=== PATIENT | female | born 1970 | race Caucasian/White ===

== ENCOUNTER 2016-10-13 14:25 | Emergency (ER) | payer BC ==
[~2016-10-13] VITALS: Wt 74.0 kg
[~2016-10-13 14:25] MED LIST: BACTDS PO; CIPR500T4 PO; DOCU-144 PO; HYDR-3498 PO; NITR-58 PO
[2016-10-13] MEDS ORDERED: DIPHENHYDRAMINE 50 MG INJ IV STA (16:59)
[2016-10-13] MEDS ORDERED: METOCLOPRAMIDE 10 MG INJ IV STA (16:59)
[2016-10-13] MEDS ORDERED: KETOROLAC 30 MG INJ IV STA (16:59)
[2016-10-13] MEDS ORDERED: ONDANSETRON 4 MG INJ IV STA (16:59)
[2016-10-13] MEDS ORDERED: SOD CHLORIDE 0.9% 1,000 ML IV STA (16:59)
[2016-10-13 17:25] LABS: BASOPHILS % 0.3 % (0.0-2.0); EOSINOPHILS # 0.1 10^3/ul (0.0-0.5); HEMATOCRIT 35.8 % (37.0-47.0); HEMOGLOBIN 12.4 g/dl (12.0-16.0); LYMPHOCYTES # 1.8 10^3/ul (0.8-2.9); LYMPHOCYTES % 34.9 % (15.0-51.0); MEAN CORPUSCULAR HEMOGLOBIN 32.8 pg (29.0-33.0); MEAN CORPUSCULAR HGB CONC 34.6 g/dl (32.0-37.0); MEAN CORPUSCULAR VOLUME 94.7 fl (82.0-101.0); MEAN PLATELET VOLUME 7.7 fl (7.4-10.4); MONOCYTE # 0.5 10^3/ul (0.3-0.9); MONOCYTES % 9.3 % (0.0-11.0); NEUTROPHIL # 2.8 10^3/ul (1.6-7.5); NEUTROPHILS % 54.5 % (39.0-77.0); PLATELET COUNT 248 10^3/UL (140-440); RED BLOOD COUNT 3.78 10^6/ul (4.20-5.40); UNCORRECTED WBC 5.2 10^3/ul (4.8-10.8); WHITE BLOOD COUNT 5.2 10^3/ul (4.8-10.8)
[2016-10-13 17:26] LABS: CONDITION 1
[2016-10-13] MEDS ORDERED: NITROFURANTOIN (SR) 100 MG CAP PO ONE (17:30)
[2016-10-13 17:32] LABS: CHLORIDE 105 mmol/L (97-110); POTASSIUM 4.9 mmol/L (3.5-5.1); SODIUM 141 mmol/L (135-144)
[2016-10-13 17:35] LABS: ANION GAP 18 (8-16); CARBON DIOXIDE 23 mmol/L (21-31); CREATININE 0.78 mg/dl (0.44-1.00)
[2016-10-13 17:36] LABS: BLOOD UREA NITROGEN 13 mg/dl (7-20); CALCIUM 9.7 mg/dl (8.4-10.2); GLUCOSE 90 mg/dl (70-220)
[2016-10-13 17:55] LABS: TROPONIN-I < 0.010 ng/ml (0.00-0.12)
[2016-10-13] MEDS ORDERED: morphine 4 MG/ML VIAL IV STA (18:54)
--- NOTE | 2016-10-13 19:26 | RADRPT ---
PROCEDURE: CT Head without. CLINICAL INDICATION: Headache. TECHNIQUE: The study was performed utilizing a multi-slice, multidetector CT scanner. Direct spira l 1 mm axial sections were obtained through the head without the use of intravenous contrast materia l. Coronal and sagittal reformations were obtained. The images were reviewed on a PACS workstation. RADIATION DOSE: CTDIvol: 42.7 mGyDLP: 720.2 mGy-cm COMPARISON: No prior studies are available for comparison. FINDINGS: There is no intracranial hemorrhage, extra-axial fluid collection, mass lesion, midline shift or hyd rocephalus. The ventricles, sulci and cisterns are within normal limits. The white matter is unrem arkable. The mckinley-white matter differentiation is preserved. The basal cisterns are patent. The m idline structures are intact. The orbits, calvarium and extracranial soft tissues are normal in shannan earance. The visualized paranasal sinuses, mastoid air cells and middle ear cavities are normally ae rated. IMPRESSION: 1. No acute intracranial abnormality. No intracranial hemorrhage, extra-axial fluid collection, ma ss lesion or hydrocephalous. RPTAT: HGAS .Eyad Forman MD, Date Time Electronically viewed and signed by .Eyad Forman MD, on 10/13/2016 19:26 .S/
[2016-10-13 19:46] VITALS: BP 135/65; PULSE 73; RESP 17
[2016-10-13] MEDS ORDERED: IBUP-1542 PO (20:20)
[2016-10-13] MEDS ORDERED: ONDA4TAB14 PO (20:20)
[2016-10-13] MEDS ORDERED: HYDR-902 PO (20:20)
[2016-10-13] MEDS ORDERED: NITR-58 PO (20:36)
--- NOTE | 2016-10-13 21:00 | ERD ---
ER Documentation Chief Complaint Date/Time DATE: 10/13/16 TIME: 20:58 Chief Complaint headache for the past 3 days. no neuro deficit, light sensitivity HPI Patient is a 46-year-old female with migraine headaches who presents with headache. The patient's headache started 3 days ago and was gradual in onset. She said that she passed out twice today. She denies fevers. She tried Motrin. She also tried Tylenol. She said that it feels like her usual migraines only stronger. Upon review of old medical records this is the patient 's fourth visit to the ER since 2007. ROS All systems reviewed and are negative except as per history of present illness. Medications Home Meds Active Scripts Nitrofurantoin Monohyd Macrocr* (Macrobid*) 100 Mg Capsr, 100 MG PO BID for 7 Days, CAP Prov:MAURICIO TRUJILLO MD 10/13/16 Ibuprofen* (Motrin*) 600 Mg Tab, 600 MG PO Q6H Y for PAIN AND OR ELEVATED TEMP, #30 TAB Prov:MAURICIO TRUJILLO MD 10/13/16 Ondansetron (Ondansetron Odt) 4 Mg Tab.rapdis, 4 MG PO Q6H Y for NAUSEA AND/OR VOMITING, #30 TAB Prov:MAURICIO TRUJILLO MD 10/13/16 Hydrocodone/Acetaminophen (Goehner 10-325 Tablet) 1 Each Tablet, 1 TAB PO Q6H Y for PAIN, #7 TAB Prov:MAURICIO TRUJILLO MD 10/13/16 Docusate Sodium* (Colace*) 100 Mg Capsule, 100 MG PO TID, #30 CAP Prov:MILAGROS NUNEZ PA-C 09/23/16 Nitrofurantoin Monohyd Macrocr* (Macrobid*) 100 Mg Capsr, 100 MG PO BID for 7 Days, CAP Prov:MILAGROS NUNEZ PA-C 09/23/16 Ciprofloxacin Hcl* (Ciprofloxacin Hcl*) 500 Mg Tablet, 500 MG PO BID for 10 Days , TAB Prov:REBECCA LOCKWOOD PA-C 04/04/16 Hydrocodone Bit-Acetaminophen* (Goehner*) 5-325 Mg Tab, 1 TAB PO Q4H Y for PAIN, # 15 TAB Prov:REBECCA LOCKWOOD PA-C 04/04/16 Sulfamethoxazole-Trimethoprim* (Bactrim* DS) 800-160 Mg Tab, 1 TAB PO BID for 5 Days, TAB Prov:REBECCA LOCKWOOD JEN 04/04/16 Allergies Allergies: Coded Allergies: Penicillins (Verified Allergy, Unknown, 10/13/16) PMhx/Soc History of Surgery: Yes (appendectomy, cholecystectomy, bladder mesh repair, hysterectomy) Anesthesia Reaction: No Hx Neurological Disorder: No Hx Respiratory Disorders: No Hx Cardiac Disorders: No Hx Psychiatric Problems: No Hx Alcohol Use: No Hx Substance Use: Yes (marijuana) Hx Tobacco Use: No Smoking Status: Former smoker FmHx Family History: No diabetes Physical Exam Vitals Vital Signs Date Time Temp Pulse Resp B/P Pulse Ox O2 Delivery O2 Flow Rate FiO2 10/13/16 19:46 73 17 135/65 98 Room Air 10/13/16 14:35 98.8 91 20 138/74 96 Physical Exam Const: Moderate distress secondary to pain Head: Atraumatic Eyes: Normal Conjunctiva ENT: Normal External Ears, Nose and Mouth. Neck: Full range of motion..~ No meningismus. Resp: Clear to auscultation bilaterally Cardio: Regular rate and rhythm, no murmurs Abd: Soft, non tender, non distended. Normal bowel sounds Skin: No petechiae or rashes Back: No midline or flank tenderness Ext: No cyanosis, or edema Neur: Awake and alert, cranial nerves II through XII intact, strength is 5 out of 5 in all 4 extremities, gait is normal Psych: Normal Mood and Affect Result Diagram: 10/13/16 1710 10/13/16 1710 Results 24 hrs Laboratory Tests Test 10/13/16 17:10 Anion Gap 18 Basophils # 0.010^3/ul Basophils % 0.3% Blood Urea Nitrogen 13mg/dl Calcium Level 9.7mg/dl Carbon Dioxide Level 23mmol/L Chloride Level 105mmol/L Creatinine 0.78mg/dl Eosinophils # 0.110^3/ul Eosinophils % 1.0% Glucose Level 90mg/dl Hematocrit 35.8% Hemoglobin 12.4g/dl Lymphocytes # 1.810^3/ul Lymphocytes % 34.9% Mean Corpuscular Hemoglobin 32.8pg Mean Corpuscular Hemoglobin Concent 34.6g/dl Mean Corpuscular Volume 94.7fl Mean Platelet Volume 7.7fl Monocytes # 0.510^3/ul Monocytes % 9.3% Neutrophils # 2.810^3/ul Neutrophils % 54.5% Nucleated Red Blood Cells # 0.010^3/ul Nucleated Red Blood Cells % 0.0/100WBC Platelet Count 03123^3/UL Potassium Level 4.9mmol/L Red Blood Count 3.7810^6/ul Red Cell Distribution Width 14.0% Sodium Level 141mmol/L Troponin I < 0.010ng/ml White Blood Count 5.210^3/ul Current Medications Medications (Trade) Dose Ordered Sig/Magy Route PRN Reason Start Time Stop Time Status Last Admin Dose Admin Sodium Chloride (NS) 1,000 ml @ 1,000 mls/hr Q1H STAT IV 10/13/16 16:59 10/13/16 17:58 DC 10/13/16 17:29 Metoclopramide HCl (Reglan) 10 mg ONCE STAT IV 10/13/16 16:59 10/13/16 17:00 DC 10/13/16 17:29 Ondansetron HCl (Zofran Inj) 4 mg ONCE STAT IV 10/13/16 16:59 10/13/16 17:01 DC 10/13/16 17:29 Ketorolac Tromethamine (Toradol) 30 mg ONCE STAT IV 10/13/16 16:59 10/13/16 17:01 DC 10/13/16 17:29 Diphenhydramine HCl (Benadryl) 25 mg ONCE STAT IV 10/13/16 16:59 10/13/16 17:01 DC 10/13/16 17:29 Nitrofurantoin Macrocrystals (Macrobid) 100 mg ONCE ONCE PO 10/13/16 17:30 10/13/16 17:31 DC 10/13/16 17:29 Morphine Sulfate (morphine) 4 mg ONCE STAT IV 10/13/16 18:54 10/13/16 18:55 DC 10/13/16 19:03 Procedures/MDM CT head negative for intracranial hemorrhage per radiology. Smoking Cessation Therapy: Pt. was lectured for greater than 3 minutes on the health risks of continued smoking and the benefits of cessation. Patient is a 46-year-old female who presents with headache. Headache was gradual in onset. CT head was negative for intracranial mass or hemorrhage. At this point I doubt subretinal hemorrhage or meningitis or intracranial mass. She was found to have an acute cystitis and I will treat her with Macrobid for 1 week course. She feels much better after treatment. The patient will be discharged home in good return for any worsening symptoms. I think the risks of doing a lumbar puncture outweigh the benefits at this time. Departure Diagnosis: Primary Impression: Cystitis Additional Impressions: Headache Headache type: unspecified Headache chronicity pattern: acute headache Intractability: not intractable Qualified Code: R51 - Acute nonintractable headache, unspecified headache type Syncope Syncope type: unspecified Qualified Code: R55 - Syncope, unspecified syncope type Condition: Fair Patient Instructions: Causes of Syncope, Self-Care for Headaches Additional Instructions: Call your primary care doctor TOMORROW for an appointment during the next 1-2 days.See the doctor sooner or return here if your condition worsens before your appointment time. MAURICIO TRUJILLO MD Oct 13, 2016 21:00
== END 2016-10-13 20:40 | disposition home or self-care (01) ==
LOC: FTE 14:25
DX: N30.90 Cystitis, unspecified without hematuria (principal); R55 Syncope and collapse; Z87.891 Personal history of nicotine dependence; Z85.41 Personal history of malignant neoplasm of cervix uteri
CPT/HCPCS: 36415; 70450; 80048; 84484; 85025; 93005; 96374; 96375; 99285; J1200; J1885; J2270; J2405; J2765; J7030; Z7610